=== PATIENT | male | born 1955 | race Caucasian/White ===

== ENCOUNTER 2017-12-04 03:24 | Inpatient (IN) | payer MEDICAID ==
[~2017-12-04] VITALS: Ht 177.8 cm; Wt 115.2 kg
--- NOTE | 2017-12-04 03:30 | NUR ---
PT TO ER BED 12. [address] PT C/O HEADACHE S/P FALLING BACKWARDS. -LOC. NOTED STRONG SMELL OF ETOH ON PT, PT ADMITS TO DRINKING YESTERDAY. 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 VSS/RESP EVEN UNLABORED/NAD NOTED/SKIN WARM AND DRY/DENIES N-V-D/AFEBRILE/AOX4. AWAITING MD LEUNG.
--- NOTE | 2017-12-04 05:29 | NUR ---
PT B/P 182/101. MADE AWARE, NEW ORDERS RECEIVED.
[2017-12-04] MEDS ORDERED: CLONIDINE HCL 0.1 MG TABLET PO ONE ×2 (05:30→14:30)
[2017-12-04] MEDS ORDERED: CLONIDINE HCL 0.1 MG TABLET ONE (05:31)
--- NOTE | 2017-12-04 07:18 | NUR ---
ENDORSED TO KRAIG JANSEN FOR ZENAIDA.
[2017-12-04] MEDS ORDERED: LORAZEPAM 1 MG TABLET ONE (08:04)
[2017-12-04] MEDS ORDERED: IV NS 0.9% 1,000 ML BAG IV ONE (09:00)
[2017-12-04] MEDS ORDERED: LORAZEPAM INJ 2 MG/ML VIAL ONE (09:07)
[2017-12-04] MEDS ORDERED: LORAZEPAM INJ 2 MG/ML VIAL IV ONE (09:30)
[2017-12-04 09:37] LABS: BASOPHILS # (AUTO) 0.1 /CMM (0.0-0.2); EOSINOPHILS % (AUTO) 2.5 % (0.0-6.0); HEMATOCRIT 37 % (39-51); HEMOGLOBIN 12.5 g/dL (13.5-17.5); LYMPHOCYTES # (AUTO) 2.3 /CMM (0.8-4.8); LYMPHOCYTES % (AUTO) 38.7 % (20.0-44.0); MEAN CORPUSCULAR HGB CONC 34 g/dl (31.0-36.0); MEAN CORPUSCULAR VOLUME 95 fL (80-96); MONOCYTES # (AUTO) 0.5 /CMM (0.1-1.30); MONOCYTES % (AUTO) 8.1 % (2.0-12.0); NEUTROPHILS # (AUTO) 2.9 /CMM (1.8-8.9); NEUTROPHILS % (AUTO) 49.7 % (43.0-81.0); PLATELET COUNT (AUTO) 462 /CMM (150-450); RED BLOOD CELL COUNT(AUTO) 3.89 MIL/uL (4.5-6.0); WHITE BLOOD COUNT (AUTO) 5.9 K/uL (4.3-11.0)
[2017-12-04 09:42] LABS: CALCIUM, SERUM 8.3 mg/dL (8.5-10.1); CREATININE 0.7 mg/dL (0.6-1.3); POTASSIUM 3.5 mmol/L (3.5-5.1)
--- NOTE | 2017-12-04 10:00 | NUR ---
PT RESTING IN BED COMFORTABLY. NAD NOTED.
[2017-12-04] MEDS ORDERED: AMLODIPINE BESYLATE 5 MG TABLET ONE (12:22)
[2017-12-04] MEDS ORDERED: AMLODIPINE BESYLATE 5 MG TABLET PO ONE (12:30)
[2017-12-04 13:10] VITALS: BP 162/89
[2017-12-04] MEDS ORDERED: LABETALOL HCL IV 100MG VIAL ONE (13:36)
[2017-12-04] MEDS ORDERED: LABETALOL HCL IV 100MG VIAL IV ONE (14:00)
[2017-12-04] MEDS ORDERED: CHLORDIAZEPOXIDE HCL 25 MG CAPSULE ONE (14:00)
[2017-12-04] MEDS ORDERED: CHLORDIAZEPOXIDE HCL 25 MG CAPSULE PO ONE (14:00)
--- NOTE | 2017-12-04 14:11 | NUR ---
LIBRIUM GIVEN PER MD ORDER
[2017-12-04] MEDS ORDERED: Z GUARD REMEDY 2 OZ OINT TP PRN (14:30)
[2017-12-04] MEDS ORDERED: THIAMINE HCL 100 MG TABLET PO ONE (14:30)
[2017-12-04] MEDS ORDERED: MAGNESIUM HYDROXIDE 30 ML UDC PO PRN (14:30)
[2017-12-04] MEDS ORDERED: ACETAMINOPHEN 325 MG TABLET PO PRN (14:30)
[2017-12-04] MEDS ORDERED: hydrALAZINE HCL 25 MG TABLET PO PRN (14:30)
[2017-12-04] MEDS ORDERED: ONDANSETRON HCL/PF 4 MG/2 ML VIAL IVP PRN (14:30)
[2017-12-04] MEDS ORDERED: MAG HYDROX/AL HYDROX/SIMETH 30 ML UDC PO PRN (14:30)
--- NOTE | 2017-12-04 14:32 | NUR ---
PT IS ASSIGNED TO 322-1
--- NOTE | 2017-12-04 14:55 | NUR ---
TELE/RN OPENING NOTE PATIENT IS RECEIVED IN [facility]. ALERT AND ORIENTED X3. THE PATIENT IS NOTED TO HAVE STRONG SMELL OF ALCOHOL AND PATIENT STATED THAT HE DRUNK ALCOHOL TODAY. DENIES SOB. RESPIRATION REGULAR AND UNLABORED DENIES PAIN. PATIENT LAS LAC G 20 PATENT AND SALINE LOCKED. TELE MONITOR IS APPLIED AND READING IS SR. PATIENT IS ORIENTED TO THE ROOM/FLOOR. BED LOW AND LOCKED. SIDE RAILS UP X2. CALL LIGHT WITHIN REACH. WILL CONTINUE TO MONITOR.
--- NOTE | 2017-12-04 15:10 | NUR ---
MS/RN NOTE CATAPRES 0.2 MG AND THIAMINE DUE AT 1430 NOT ADMINISTERED DUE TO PATIENT BEING NPO.
[2017-12-04 16:00] VITALS: BP 162/89
[2017-12-04] MEDS: LABETALOL HCL (100MG) 100 MG TABLET PO SCH (17:00)
--- NOTE | 2017-12-04 17:00 | NUR ---
TELE/RN NOTE TRANDATE 200 MG NOT ADMINISTERED DUE TO PATIENT BEING NPO.
[2017-12-04] MEDS: hydrALAZINE HCL IV 20 MG VIAL IV PRN ×2 (17:46→22:05)
--- NOTE | 2017-12-04 17:46 | NUR ---
TELE/RN NOTE APRESOLINE PRN GIVEN ORDERED DUE TO BP 164/87. PATIENT IN NO APPARENT DISTRESS.
--- NOTE | 2017-12-04 18:11 | NUR ---
TELE/RN CLOSING NOTE PATIENT ALERT AND ORIENTED X3. DENIES SOB. RESPIRATION REGULAR AND UNLABORED. PATIENT ON OXYGEN AT 2L/MIN VIA NC AND SATURATION IS AT 97%. DENIES PAIN. TELE MONITOR READING SR 84. ALCOHOL ODOR STILL COMING FROM THE PATIENT. PATIENT SLEEPY AND IS TAKING NAP. PATIENT REMAINS NPO. LAC G 20 PATENT AND SALINE LOCKED. BED LOW AND LOCKED. SIDE RAILS UP X2. BED ALARM ON. CALL LIGHT WITHIN REACH. WILL ENDORSE TO GUIDE CRUISE.
[2017-12-04] MEDS: LORAZEPAM INJ 2 MG/ML VIAL IV PRN (19:39)
--- NOTE | 2017-12-04 19:40 | NUR ---
TELE/RN OPENING NOTES PATIENT IN BED, ALERT, ORIENTED X3, ABLE TO VERBALIZE NEEDS, REPORTED FEELING HUNGRY, WITH MD ORDER NPO DUE TO INTOXICATION, WAS ADMITTED JUST THIS AFTERNOON, KEEP COMFORTABLE INFORMED THE RISK/BENEFIR. REPORTED WANTS TO BE CALM AND HAVING ELEVATED B/P, ONLY FEW HOURS GIVEN FOR ELEVATED B/P, READING ON TELE AT SR 88. WILL MONITOR. ATIVAN 2MG IVP TO BE GIVEN MONITORING FOR RELIEF. RECEIVED REPORT FROM MUKUL RN.
[2017-12-04 20:00] VITALS: BP_SYST 117; BP_SYST 175; BP_DIAS 79; BP_DIAS 93
--- NOTE | 2017-12-04 20:00 | NUR ---
TELE/RN OPENING NOTES PATIENT IN BED, ALERT, ORIENTED X3, ABLE TO VERBALZIE NEEDS AT ALL TIMES, REPORTED FEELING HUNGRY, MD ORDER NPO., MOONITORING FOR ANY CHANGES, B/P ELEVATED, WILL FOLLOW UP FOR MD .AFTER INTERVENTION PROVIDED.
[2017-12-04] MEDS: LITHIUM CARBONATE 150 MG CAPSULE PO SCH (20:13)
--- NOTE | 2017-12-04 20:25 | NUR ---
TELE/RN NOTES NEW ADMITTED PATIENT ARRIVED FROM ER ON A GURNEY ACCOMPANIED BY DTR, ALERT, ORIENTED X2, INDONESIAN SPKG, DTR ASSIST WITH TRANSLATION AND AT BEDSIDE, REQUIRE ASSISTANCE FOR SAFETY, ON 2L OXYGEMN VIA NC FOR DISCOMFORT DUE TO DYSPNEA, TELE AT NORMAL SINUS RHYTHM, ON 2G SALT DIET, IV RFA GAUGE 20, W/ NO S/S OF INFILTRATION, PATENT, POTASSIUM AT 3.4. 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 WILL MONITOR, BELONGINGS CHECK, CALL LIGHTS WITHIN REACH, NO SKIN ISSUES, MD WITH ORDERS.
--- NOTE | 2017-12-04 22:09 | NUR ---
TELE/RN NOTES MD DHALIWAL CONTACTED REGARDING PATIENT ALERT, ORIENTED X3, ABLE TO VERBALIZE NEDS, REPORTED FEELING HUNGRY AND ORDER FOR DIET, B/P ELEVATED AT 175/93, HYDRALAZINE 10MG IVP GIVEN WILL MONITOR.
--- NOTE | 2017-12-04 22:10 | NUR ---
TELE/RN NOTES MD ORDER DIET 2GSODIUM DIET
[2017-12-04] MEDS ORDERED: LABETALOL HCL (100MG) 100 MG TABLET PO SCH (23:00)
[2017-12-04 23:54] VITALS: BP 188/94
[2017-12-05] VITALS (9 sets, daily range): BP systolic 147–188; BP diastolic 78–101
[2017-12-05] MEDS: HYDROCODONE/APAP 5/325MG 1 EACH TABLET PO PRN ×2 (00:30→06:09)
--- NOTE | 2017-12-05 00:31 | NUR ---
TELE/RN NOTES PATIENT REPORTED HEADACHE OF 6/10, NORCO 5-325MG PO GIVEN, BY MOUTH, WILL MONITOR EFFECTIVENESS.
[2017-12-05] MEDS: hydrALAZINE HCL IV 20 MG VIAL IV PRN ×2 (04:14→08:02)
--- NOTE | 2017-12-05 04:14 | NUR ---
TELE/RN NOTES HYDRALAZINE 10MG IVP GIVEN. B/P AT 173/98, WILL MONITOR EFFECTIVENESS
--- NOTE | 2017-12-05 05:30 | NUR ---
RECHECK B/P 147/78
--- NOTE | 2017-12-05 06:05 | NUR ---
PATIENT REPORTED PAIN IN LEFT ARM 9/10, REQUESTING FOR NORCO 5-325 MG PO TO RELIEVE PAIN. WILL MONITOR
--- NOTE | 2017-12-05 06:27 | NUR ---
322-2 TELE/RN NOTES PATIENT IN BED, ABLE TO SLEEP DURING THE NIGHT ,, WITH MONITORING FOR ELEVATED BLOOD PRESSURE, ON NEEDED MEDICATIONFOR HTN, REQUIRE O2 SAT NC, RESPIRATIONS EVEN AND UNLABORED, CALL LIGHTS WITHIN REACH, BED IN LOCK POSITION, WILL MONITOR AND ENDORSE TO AM RN FOR ZENAIDA.
[2017-12-05 06:40] LABS: CALCIUM, SERUM 8.4 mg/dL (8.5-10.1); CREATININE 0.8 mg/dL (0.6-1.3); MAGNESIUM 1.8 mg/dL (1.8-2.4); PHOSPHORUS 4.3 mg/dL (2.5-4.9)
[2017-12-05 06:43] LABS: THYROID STIMULATING HORMONE 7.274 uIU/mL (0.358-3.74)
[2017-12-05 06:48] LABS: BASOPHILS % (AUTO) 0.4 % (0.0-2.0); EOSINOPHILS % (AUTO) 1.5 % (0.0-6.0); HEMATOCRIT 38 % (39-51); HEMOGLOBIN 12.8 g/dL (13.5-17.5); LYMPHOCYTES # (AUTO) 1.9 /CMM (0.8-4.8); LYMPHOCYTES % (AUTO) 26.4 % (20.0-44.0); MEAN CORPUSCULAR HGB CONC 34 g/dl (31.0-36.0); MEAN CORPUSCULAR VOLUME 95 fL (80-96); MONOCYTES # (AUTO) 0.6 /CMM (0.1-1.30); MONOCYTES % (AUTO) 8.8 % (2.0-12.0); NEUTROPHILS # (AUTO) 4.4 /CMM (1.8-8.9); NEUTROPHILS % (AUTO) 62.9 % (43.0-81.0); PLATELET COUNT (AUTO) 440 /CMM (150-450); RDW COEFFICIENT OF VARIATION 14.6 (11.5-15.0); RED BLOOD CELL COUNT(AUTO) 3.99 MIL/uL (4.5-6.0); WHITE BLOOD COUNT (AUTO) 7.1 K/uL (4.3-11.0)
--- NOTE | 2017-12-05 06:53 | NUR ---
MD DHALIWAL MADE AWARE REGARDING LATEST RESULT OF POTASSIUM LEVEL THIS AM BLOOD DRAW AT 3.0 AND ORDER TO GIVE PO 40 K DUR ONCE.
[2017-12-05] MEDS ORDERED: POTASSIUM CHLORIDE 20 MEQ TAB.PRT.SR PO ONE (07:00)
--- NOTE | 2017-12-05 07:15 | NUR ---
REPORT RECEIVED AT THE BEDSIDE. PATIENT IS SLEEPING AT THIS TIME. NO SOB OR DISTRESS NOTED. PATIENT DOES NOT APPEAR TO BE IN PAIN, NO FACIAL GRIMACE NOTED. HEART RATE SR IN THE 70S. BED IN A LOW POSITION, CALL LIGHT WITHIN PATIENT REACH. WILL MONITOR.
--- NOTE | 2017-12-05 07:59 | NUR ---
ALERTED TO BP 171/100. WILL ADMIN IV HYDRALAZINE ORDERED.
[2017-12-05] MEDS: LITHIUM CARBONATE 150 MG CAPSULE PO SCH (08:02)
[2017-12-05] MEDS: LABETALOL HCL (100MG) 100 MG TABLET PO SCH ×2 (08:02→16:57)
[2017-12-05] MEDS ORDERED: POTASSIUM CHLORIDE 20 MEQ TAB.PRT.SR PO SCH (09:00)
--- NOTE | 2017-12-05 09:22 | NUR ---
RECHECKED PT BLOOD PRESSURE AFTER ORAL AND IV BP MEDS. IS 168/96 PULSE 82. CALLED [facility] FOR LEDA HORN, TO REPORT AND GET ORDERS. WAITING FOR RESPONSE.
--- NOTE | 2017-12-05 09:50 | NUR ---
CALL BACK FROM LEDA HORN. DIRECTOR MOTION PICTURE STATES TO GIVE CLONIDINE 0.1 ONE TIME NOW. ORDER CARRIED OUT. WILL RECHECK BP IN ONE HOUR.
--- NOTE | 2017-12-05 09:57 | NUR ---
LEDA HORN SENT MESSAGE TO KEEP THE PATIENT ON TELE SO THAT BP WILL BE CONTINUED TO BE CHECKED Q4H. TELE TO STAY UNTIL PT BP STABLE.
[2017-12-05] MEDS ORDERED: CLONIDINE HCL 0.1 MG TABLET PO ONE (10:00)
[2017-12-05] MEDS ORDERED: DEXTROSE 50%-WATER 50 ML DISP.SYRIN IV PRN ×2 (10:00→11:00)
[2017-12-05] MEDS ORDERED: INSULIN REGULAR, HUMAN 100 UNIT/ML 3 ML VIAL SQ PRN (11:00)
--- NOTE | 2017-12-05 11:01 | NUR ---
Social service consult requested by LEDA Barreto for hypertension and alcohol withdrawal. Pt. is a 62 year old male who was admitted to [facility] for Hypertension. SW met with pt. bedside. Pt. is alert and oriented x 3. Pt. informed SW that he has being renting a room. Pt. is homeless. SW offered pt. homeless custodial placement, however pt. declined. Pt. is willing to take homeless resources. Pt. states he has a son and daughter but does not live with them anymore. Pt. use to work at a [employer] but is currently unemployed. Pt. was receiving food stamps but is currently not receiving due to being inactive. SW encourage pt. to go to [employer] office and apply for food stamps and General Relief. Pt's alcohol level was significantly high upon arrival, however, when SW inquired with pt. how much alcohol he drinks daily, pt. minimized his drinking stating , " one or two beers per day". SW asked pt. as to why his alcohol level was high, pt. stated he had been partying and drank a lot prior to coming to the hospital. Pt. declined alcohol treatment program referrals. SW to give to pt. the following referrals prior to discharge: Homeless shelters, Food bank referrals, list of [employer] offices in [place], Employment resources and list of Social Security administration. Pt. will need bus tokens upon discharge.
[2017-12-05] MEDS ORDERED: CHLORDIAZEPOXIDE HCL 10 MG CAPSULE PO SCH (12:00)
[2017-12-05] MEDS ORDERED: BLOOD SUGAR DIAGNOSTIC 1 EACH STRIP IN SCH (12:00)
--- NOTE | 2017-12-05 12:05 | NUR ---
PT BP 163/92. REFUSING PRN BP MED AT THIS TIME. ASKING FOR ATIVAN. WILL ADMIN
--- NOTE | 2017-12-05 12:39 | NUR ---
CALLED PATEL IN PHARMACY LIBRIUM IS NOT STOCKED IN EITHER OMNICEL. PATEL STATES HE WILL HAVE THE MEDICATION SENT.
[2017-12-05] MEDS: LORAZEPAM INJ 2 MG/ML VIAL IV PRN ×4 (12:43→21:43)
[2017-12-05] MEDS: BLOOD SUGAR DIAGNOSTIC 1 EACH STRIP IN SCH ×3 (12:43→21:26)
[2017-12-05] MEDS: INSULIN REGULAR, HUMAN 100 UNIT/ML 3 ML VIAL SQ PRN ×3 (12:44→21:38)
--- NOTE | 2017-12-05 13:39 | NUR ---
CALLED PATEL IN PHARMACY AGAIN LIBRIUM DOSE IS STILL NOT ON FLOOR. STATES HE WILL HAVE IT RESENT.
[2017-12-05] MEDS: CHLORDIAZEPOXIDE HCL 5 MG CAPSULE PO SCH ×2 (16:56→21:26)
[2017-12-05] MEDS: CLONIDINE HCL 0.1 MG TABLET PO PRN (16:56)
--- NOTE | 2017-12-05 19:10 | NUR ---
DIRECTOR MARKETING ANALYTICS NOTES PATIENT IN BED, AWAKE, ALERT AND ORIENTED, VERBALLY RESPONSIVE, NO SOB NOTED AND IN NO ACUTE DISTRESS. PT RECEIVING O2 VIA NC @2LPM. O2 SAT WNL, BREATHING EVEN AND UNLABORED. ALL PATIENT'S NEEDS ATTENDED TO AT THIS TIME, PLACED CALL LIGHT IN EASY REACH. WILL CONTINUE TO MONITOR.
[2017-12-06] VITALS: BP 141/83
[2017-12-06] MEDS: CLONIDINE HCL 0.1 MG TABLET PO PRN (01:39)
[2017-12-06] MEDS: hydrALAZINE HCL IV 20 MG VIAL IV PRN (03:28)
[2017-12-06 04:00] VITALS: BP 153/85
[2017-12-06] MEDS: LORAZEPAM INJ 2 MG/ML VIAL IV PRN (04:04)
[2017-12-06 06:12] LABS: BASOPHILS % (AUTO) 0.4 % (0.0-2.0); EOSINOPHILS % (AUTO) 2.2 % (0.0-6.0); HEMATOCRIT 39 % (39-51); HEMOGLOBIN 13.2 g/dL (13.5-17.5); LYMPHOCYTES # (AUTO) 1.3 /CMM (0.8-4.8); LYMPHOCYTES % (AUTO) 21.1 % (20.0-44.0); MEAN CORPUSCULAR HGB CONC 34 g/dl (31.0-36.0); MEAN CORPUSCULAR VOLUME 95 fL (80-96); MONOCYTES # (AUTO) 0.3 /CMM (0.1-1.30); MONOCYTES % (AUTO) 5.7 % (2.0-12.0); NEUTROPHILS # (AUTO) 4.3 /CMM (1.8-8.9); NEUTROPHILS % (AUTO) 70.6 % (43.0-81.0); PLATELET COUNT (AUTO) 417 /CMM (150-450); RDW COEFFICIENT OF VARIATION 14.2 (11.5-15.0); RED BLOOD CELL COUNT(AUTO) 4.08 MIL/uL (4.5-6.0)
[2017-12-06] MEDS: BLOOD SUGAR DIAGNOSTIC 1 EACH STRIP IN SCH ×2 (06:46→12:14)
[2017-12-06 06:47] LABS: ALBUMIN 3.3 g/dL (3.4-5.0); BILIRUBIN,TOTAL 0.7 mg/dL (0.2-1.0); CALCIUM, SERUM 8.8 mg/dL (8.5-10.1); CREATININE 0.8 mg/dL (0.6-1.3); POTASSIUM 3.2 mmol/L (3.5-5.1); TOTAL PROTEIN, SERUM 7.4 g/dL (6.4-8.2)
[2017-12-06] MEDS: INSULIN REGULAR, HUMAN 100 UNIT/ML 3 ML VIAL SQ PRN ×2 (06:47→12:14)
[2017-12-06] MEDS: HYDROCODONE/APAP 5/325MG 1 EACH TABLET PO PRN ×2 (07:00→11:01)
--- NOTE | 2017-12-06 07:00 | NUR ---
CERTIFIED LEGAL INVESTIGATOR CLOSING NOTES PATIENT IN BED, ALERT AND ORIENTED X 3 WITH EPISODES OF FORGETFULNESS. ALL PATIENT'S NEEDS ATTENDED TO THROUGHOUT THE SHIFT. NOTED PT WITH NO SOB, BREATHING EVEN AND UNLABORED IN ROOM AIR, O2 SAT WNL. PT WITH EPISODES OF HYPERTENSION, MEDICATION GIVEN ORDERED. KEPT PT SAFE AND DRY, CLEAN AND COMFORTABLE. CALL LIGHT PLACED WITHIN EASY REACH. WILL ENDORSE TO AM SHIFT NURSE FOR CONTINUITY OF CARE. Addendum: 12/06/17 at 0744 by KADIE LIU RN PT ON SINUS RHYTHM @ 60-70 BPM.
--- NOTE | 2017-12-06 07:35 | NUR ---
RN OPENING NOTES PATIENT IN BED, ALERT AND ORIENTED X 3 WITH EPISODES OF FORGETFULNESS. RESPIRATIONS EVEN AND UNLABORED ON ROOM AIR, O2 SAT WNL. PT WITH EPISODES OF HYPERTENSION, PRN MEDICATION GIVEN ORDERED. KEPT PT SAFE AND DRY, CLEAN AND COMFORTABLE, CALL LIGHT PLACED WITHIN EASY REACH. WILL CONTINUE TO MONITOR
[2017-12-06 08:00] VITALS: BP_SYST 151; BP_SYST 158; BP_DIAS 96
[2017-12-06] MEDS: CHLORDIAZEPOXIDE HCL 5 MG CAPSULE PO SCH ×2 (08:07→12:11)
[2017-12-06] MEDS: LABETALOL HCL (100MG) 100 MG TABLET PO SCH (08:08)
--- NOTE | 2017-12-06 10:53 | NUR ---
MARISEL met with pt. bedside. to discuss discharge plan. SW again offered pt. homeless [facility] placement and pt. declined. MARISEL gave pt. the following resources: List of Social Security offices, list of Dept. of Public Patient Navigator, List of food garza and homeless [facility] resources, Employment resources and referrals. MARISEL encouraged pt. to go to the [facility] between 9AM to 4PM to link up with homeless services. Pt. acknowledged. Pt. will require two bus tokens to get to [facility] located at [address] [place] [address]. [place] [id number]. Med Surg3 SONJA Good notified of pt's discharge plan.
[2017-12-06 10:58] VITALS: BP 134/78
[2017-12-06] MEDS ORDERED: POTASSIUM CHLORIDE 20 MEQ TAB.PRT.SR PO ONE (11:30)
--- NOTE | 2017-12-06 13:30 | NUR ---
RN NOTES PATIENT WITH DISCHARGE ORDERS NOTIFIED BY RN, DNP WILL TALK TO PT, PER PT WANTS TO TALK TO HYDROLOGY TEACHER AGAIN REINFORCED RESOURCES AND GIVEN BUS TOKENS PATIENT AGREEABLE TO GO TO [facility], PT GIVEN ADDRESS AND REVIEWED PRESCRIPTIONS AND DISCHARGE INSTRUCTIONS. IV ACCESS AND ID BAND REMOVED WITH NO ASE NOTED. PATIENT PASSIVELY LISTENING TO INFORMATION GIVEN AND WITH REINFORCEMENT VERBALIZES UNDERSTANDING
--- NOTE | 2017-12-06 14:10 | NUR ---
SUPERVISOR CARTOGRAPHY NOTES PATIENT IN BED, ALERT AND ORIENTED X 3 WITH NEED FOR REINFORCEMENT. RESPIRATIONS EVEN AND UNLABORED ON ROOM AIR, O2 SAT WNL. PT WITH DISCHARGE ORDERS, DNP SPOKE TO PT WELL SW, PATIENT CLEAR FOR DISCHARGE ALL DISCHARGE INSTRUCTIONS AND PRESCRIPTIONS REVIEWED WITH PT, PASSIVELY LISTENING NOTED WITH VERBAL UNDERSTANDING. BUS TOKENS PROVIDED, IV ACCESS AND ID BAND REMOVED WITH NO ASE NOTED. NO SKIN ISSUES NOTED, TAKEN TO LOBBY BY RN FOR DISCHARGE, DISCHARGED IN STABLE CONDITION
== END 2017-12-06 14:00 | disposition home or self-care (01) | DRG 199 ==
LOC: EDBD 03:27 → ER 03:27 → TELE 14:37 → MED 12-05 09:25 → TELE 12-05 10:32 → MED 12-06 11:04
PROVIDERS: ADMIT Registered Nurse; ATTEND Registered Nurse
DX: I16.1 Hypertensive emergency (principal); E11.65 Type 2 diabetes mellitus with hyperglycemia; S09.90XA Unspecified injury of head, initial encounter; I16.0 Hypertensive urgency; D64.9 Anemia, unspecified; F10.129 Alcohol abuse with intoxication, unspecified; I10 Essential (primary) hypertension; Y90.8 Blood alcohol level of 240 mg/100 ml or more; E87.6 Hypokalemia; W01.0XXA Fall on same level from slipping, tripping and stumbling without subsequent striking against object, initial encounter; Y92.009 Unspecified place in unspecified non-institutional (private) residence as the place of occurrence of the external cause; E03.9 Hypothyroidism, unspecified; E66.9 Obesity, unspecified; E78.1 Pure hyperglyceridemia
CPT/HCPCS: 36415; 70450-TC; 80048-TC; 80053-TC; 80061-TC; 82962-TC; 83735-TC; 84100-TC; 84439-TC; 84443-TC; 85025-TC; 87081-TC; A4606; G0480; J0360; J1815; J2060; J3490; J7030; Z7610